=== PATIENT | male | born 1950 | race American Indian/Alaskan Native ===

== ENCOUNTER 2017-07-08 20:01 | Emergency (ER) | payer MEDICAID ==
[2017-07-08 20:15] VITALS: BP 130/81
[2017-07-08 20:34] LABS: Basophils % (Auto) 0.4 % (0.0-1.8); Eosinophils # (Auto) 0.1 K/mm3 (0.0-0.4); Eosinophils % (Auto) 3.4 % (0.0-4.3); Hemoglobin 14.8 gm/dl (11.8-15.2); Lymphocytes # (Auto) 1.1 K/mm3 (1.2-5.4); Lymphocytes % (Auto) 30.7 % (13.4-35.0); Mean Corpuscular HGB Conc 33 % (32-34); Mean Corpuscular Volume 78 fl (84-94); Monocytes # (Auto) 0.5 K/mm3 (0.0-0.8); Monocytes % (Auto) 14.6 % (0.0-7.3); Platelet Count 236 K/mm3 (140-440); Red Cell Distribution Width 16.3 % (13.2-15.2)
[2017-07-08 20:35] LABS: Mean Corpuscular Hemoglobin 26 pg (28-32)
[2017-07-08] MEDS ORDERED: ZOFRAN ODT PO ONE (20:51)
[2017-07-08] MEDS ORDERED: TYLENOL #3 PO ONE (20:51)
[2017-07-08] MEDS ORDERED: VITAMIN B-1 100 MG, FOLVITE 1 MG, INFUVITE 10 ML in NACL 0.9% 1000 ML 1,000 ML IV ONE (21:00)
[2017-07-08 21:06] LABS: BUN/Creatinine Ratio 8; Blood Urea Nitrogen 7 mg/dL (9-20); Calcium 8.4 mg/dL (8.4-10.2); Hemolysis Index 70
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
[2017-07-08 21:18] LABS: Bilirubin,Urine NEG (Negative); Blood,Urine NEG (Negative); Color,Urine Yellow (Yellow); Mucus,Urine FEW /HPF; Protein,Urine <15 mg/dL mg/dL (Negative); Urobilinogen,Urine < 2.0 mg/dL (<2.0)
[2017-07-08 21:32] LABS: Amphetamine Screen,Urine PRESUMPTIVE NEGATIVE; Benzodiazepines Screen,Urine PRESUMPTIVE NEGATIVE; Cannabinoid Screen,Urine PRESUMPTIVE NEGATIVE; Opiate Screen,Urine PRESUMPTIVE NEGATIVE
[2017-07-08 21:45] LABS: Cocaine Screen,Urine PRESUMPTIVE POSITIVE; Methadone Screen,Urine PRESUMPTIVE POSITIVE
[2017-07-08] MEDS ORDERED: SUBLIMAZE IV ONE (21:47)
--- NOTE | 2017-07-08 22:40 | XRay Report ---
FINAL REPORT PROCEDURE: XR CHEST ROUTINE 2V TECHNIQUE: PA and lateral chest radiographs were obtained. CPT 29253 HISTORY: left chest wall pain COMPARISON: No prior studies are available for comparison. FINDINGS: Heart: Normal. Mediastinum/Vessels: Normal. Lungs/Pleural space: There is moderate degree elevation of left hemidiaphragm. There are no confluent infiltrates or mass lesions. Bilateral pleural spaces are clear. Lungs are hyperinflated.. Bony thorax: Moderate degree S shaped scoliosis is noted involving thoracolumbar spine.. Other: IMPRESSION: COPD No acute pulmonary process..
== END 2017-07-09 01:35 | disposition home or self-care (01) ==
LOC: EEVIPCON 20:01 → ED 20:01
DX: E86.0 Dehydration (principal); F10.120 Alcohol abuse with intoxication, uncomplicated; R07.89 Other chest pain; I10 Essential (primary) hypertension; K76.9 Liver disease, unspecified; F17.200 Nicotine dependence, unspecified, uncomplicated
CPT/HCPCS: 36415; 71046; 80048; 80307; 81001; 84484; 85025; 93005; 93010; 96365; 99284; G0480; J3411; J7030; 80320; Q0162

== ENCOUNTER 2018-08-11 01:33 | Emergency (ER) | payer MEDICARE ==
--- NOTE | 2018-08-11 03:09 | Emergency Department Report ---
HPI - General Chief Complaint: Medical Clearance Time Seen by Provider: 08/11/18 03:01 - [facility] HPI: Room 11 The patient is a 67-year-old male presenting with a chief complaint medical clearance for alcohol and drug detox. The patient states he was sent here from [facility] for echo clearance for alcohol and drug detox. The patient states his last alcohol consumption occurred home. Patient has no specific complaints. However during the interview by the mental health appeals manager (Carmine) the patient admits to suicidal ideation stating that he wants to overdose Location: Mental state Duration: [See above] Quality: Suicidal Severity: Severe Modifying factors: [see above] Context: [see above] Mode of transportation: [not driving] ED Past Medical Hx - Past Medical History Previous Medical History?: Yes Hx Hypertension: Yes Hx Liver Disease: Yes Hx Psychiatric Treatment: Yes Hx HIV: Yes - Surgical History Past Surgical History?: No - Family History Family history: no significant - Social History Smoking Status: Never Smoker Substance Use Type: Alcohol, Cocaine, Prescribed, Other (Suboxone, Xanax) - Medications Home Medications: Home Medications Medication Instructions Recorded Confirmed Last Taken Type No Known Home Medications [No 08/11/18 08/11/18 Unknown History Reported Home Medications] ED Review of Systems ROS: Stated complaint: MEDICAL CLEARANCE Other details as noted in HPI Constitutional: no symptoms reported Eyes: denies: eye pain ENT: denies: throat pain Respiratory: no symptoms reported Cardiovascular: denies: chest pain Endocrine: no symptoms reported Gastrointestinal: denies: abdominal pain Genitourinary: denies: dysuria Musculoskeletal: myalgia Neurological: denies: headache Psychiatric: suicidal thoughts Physical Exam - Physical Exam Physical Exam: GENERAL: The patient is well-developed well-nourished male lying on stretcher n ot appearing to be in acute distress. [] HEENT: Normocephalic. Atraumatic. Extraocular motions are intact. Patient has moist mucous membranes. NECK: Supple. Trachea midline CHEST/LUNGS: Clear to auscultation. There is no respiratory distress noted. HEART/CARDIOVASCULAR: Regular. There is no tachycardia. There is no gallop rub or murmur. ABDOMEN: Abdomen is soft, nontender. Patient has normal bowel sounds. There is no abdominal distention. SKIN: There is no rash. There is no edema. There is no diaphoresis. NEURO: The patient is awake, alert, and oriented. The patient is cooperative. The patient has normal speech MUSCULOSKELETAL: There is no evidence of acute injury. ED Medical Decision Making - Lab Data Result diagrams: 08/11/18 03:22 08/11/18 03:22 Laboratory Tests 08/11/18 08/11/18 08/11/18 03:22 03:22 03:22 WBC RBC Hgb Hct MCV MCH MCHC RDW Plt Count Lymph % (Auto) [place] % (Auto) Eos % (Auto) Baso % (Auto) Lymph # Carson # Eos # Baso # Seg Neutrophils % Seg Neutrophils # Sodium 140 Potassium 3.6 Chloride 105.0 Carbon Dioxide 24 Anion Gap 15 BUN 11 Creatinine 0.8 Estimated GFR > 60 BUN/Creatinine Ratio 14 Glucose 83 Calcium 8.8 Urine Color Urine Turbidity Urine pH Ur Specific [place] Urine Protein Urine Glucose (UA) Urine Ketones Urine Blood Urine Nitrite Urine Bilirubin Urine Urobilinogen Ur Leukocyte Esterase Urine WBC (Auto) Urine RBC (Auto) Urine Mucus Salicylates < 0.3 L Urine Opiates Screen Urine Methadone Screen Acetaminophen < 5.0 L Ur Barbiturates Screen Ur Phencyclidine Scrn Ur Amphetamines Screen U Benzodiazepines Scrn U Marijuana (THC) Screen Drugs of Abuse Note Plasma/Serum Alcohol 08/11/18 08/11/18 08/11/18 03:22 03:22 Unknown WBC 4.7 RBC 5.65 H Hgb 14.9 Hct 45.5 MCV 81 L MCH 27 L MCHC 33 RDW 15.6 H Plt Count 261 Lymph % (Auto) 43.6 H [place] % (Auto) 12.3 H Eos % (Auto) 2.2 Baso % (Auto) 0.6 Lymph # 2.1 Carson # 0.6 Eos # 0.1 Baso # 0.0 Seg Neutrophils % 41.3 Seg Neutrophils # 1.9 Sodium Potassium Chloride Carbon Dioxide Anion Gap BUN Creatinine Estimated GFR BUN/Creatinine Ratio Glucose Calcium Urine Color Yellow Urine Turbidity Clear Urine pH 6.0 Ur Specific [place] 1.015 Urine Protein <15 mg/dl Urine Glucose (UA) Neg Urine Ketones Neg Urine Blood Neg Urine Nitrite Neg Urine Bilirubin Neg Urine Urobilinogen < 2.0 Ur Leukocyte Esterase Neg Urine WBC (Auto) < 1.0 Urine RBC (Auto) 2.0 Urine Mucus Few Salicylates Urine Opiates Screen Urine Methadone Screen Acetaminophen Ur Barbiturates Screen Ur Phencyclidine Scrn Ur Amphetamines Screen U Benzodiazepines Scrn U Marijuana (THC) Screen Drugs of Abuse Note Plasma/Serum Alcohol < 0.01 08/11/18 Unknown WBC RBC Hgb Hct MCV MCH MCHC RDW Plt Count Lymph % (Auto) [place] % (Auto) Eos % (Auto) Baso % (Auto) Lymph # Carson # Eos # Baso # Seg Neutrophils % Seg Neutrophils # Sodium Potassium Chloride Carbon Dioxide Anion Gap BUN Creatinine Estimated GFR BUN/Creatinine Ratio Glucose Calcium Urine Color Urine Turbidity Urine pH Ur Specific [place] Urine Protein Urine Glucose (UA) Urine Ketones Urine Blood Urine Nitrite Urine Bilirubin Urine Urobilinogen Ur Leukocyte Esterase Urine WBC (Auto) Urine RBC (Auto) Urine Mucus Salicylates Urine Opiates Screen Presumptive negative Urine Methadone Screen Presumptive negative Acetaminophen Ur Barbiturates Screen Presumptive negative Ur Phencyclidine Scrn Presumptive negative Ur Amphetamines Screen Presumptive negative U Benzodiazepines Scrn Presumptive negative U Marijuana (THC) Screen Presumptive negative Drugs of Abuse Note Disclamer Plasma/Serum Alcohol - Differential Diagnosis suicidal ideation, polysubstance abuse Critical care attestation.: If time is entered above; I have spent that time in minutes in the direct care of this critically ill patient, excluding procedure time. ED Disposition Clinical Impression: Suicidal ideation, Polysubstance abuse Disposition: [id number]/[id number] HOSP/PSY UNIT Is pt being admited?: No Does the pt Need Aspirin: No Condition: Serious Referrals: PRIMARY CARE, [Referring] - 3-5 Days Time of Disposition: 04:29 (awaiting acceptance)
[2018-08-11 03:39] LABS: Bilirubin,Urine NEG (Negative); Blood,Urine NEG (Negative); Color,Urine Yellow (Yellow); Mucus,Urine FEW /HPF; Protein,Urine <15 mg/dL mg/dL (Negative); Urobilinogen,Urine < 2.0 mg/dL (<2.0)
[2018-08-11 04:06] LABS: Basophils % (Auto) 0.6 % (0.0-1.8); Eosinophils # (Auto) 0.1 K/mm3 (0.0-0.4); Eosinophils % (Auto) 2.2 % (0.0-4.3); Hematocrit 45.5 % (35.5-45.6); Hemoglobin 14.9 gm/dl (11.8-15.2); Lymphocytes # (Auto) 2.1 K/mm3 (1.2-5.4); Lymphocytes % (Auto) 43.6 % (13.4-35.0); Mean Corpuscular HGB Conc 33 % (32-34); Mean Corpuscular Volume 81 fl (84-94); Monocytes # (Auto) 0.6 K/mm3 (0.0-0.8); Monocytes % (Auto) 12.3 % (0.0-7.3); Platelet Count 261 K/mm3 (140-440); Red Blood Count 5.65 M/mm3 (3.65-5.03); Red Cell Distribution Width 15.6 % (13.2-15.2)
[2018-08-11 04:14] LABS: WBC,Urine < 1.0 /HPF (0.0-6.0)
[2018-08-11 04:27] LABS: BUN/Creatinine Ratio 14; Blood Urea Nitrogen 11 mg/dL (9-20); Calcium 8.8 mg/dL (8.4-10.2); Hemolysis Index 31
[2018-08-11 04:36] LABS: Amphetamine Screen,Urine PRESUMPTIVE NEGATIVE; Benzodiazepines Screen,Urine PRESUMPTIVE NEGATIVE; Cannabinoid Screen,Urine PRESUMPTIVE NEGATIVE; Methadone Screen,Urine PRESUMPTIVE NEGATIVE; Opiate Screen,Urine PRESUMPTIVE NEGATIVE
[2018-08-11 04:48] LABS: Cocaine Screen,Urine PRESUMPTIVE POSITIVE
--- NOTE | 2018-08-11 14:17 | Consultation ---
History of Present Illness - Reason for Consult Consult date: 08/11/18 Reason for consult: Mental Health Evaluation Requesting physician: SATHYA PIERRE - Chief Complaint Chief complaint: "I was never suicidal" - History of Present Psychiatric Illness 67 y.o. AA male who presented the ER for drug detox and SI's. Today the patient is calm and cooperative during the assessment. He stated that he was never suicidal when asked. He stated that he mentioned being suicidal to get help for his substance abuse. He stated having a "long hx " of substance/alcohol abuse> He stated that he have been to rehab in the past, but often relapse. He stated that he is willing to go to any facility for assistance. He denies Si/HI's and AVH's. He denies being depressed, erratic sleep, and a poor appetite. Medications and Allergies Allergies Allergy/AdvReac Type Severity Reaction Status Date / Time No Known Allergies Allergy Unverified 07/08/17 20:14 Home Medications Medication Instructions Recorded Confirmed Last Taken Type No Known Home Medications [No 08/11/18 08/11/18 Unknown History Reported Home Medications] Past psychiatric history - Past Medical History Past Medical History: HIV/AIDS, other (Liver Disease) Past Surgical History: No surgical history - past Psychiatric treatment and history psychiatric treatment history: Hx of Substance Abuse. Denies a fam psy hx. - Social History Social history: other (Homeless) Mental Status Exam - Vital signs Last Vital Signs Temp Pulse Resp 18 08/11/18 07:00 BP Pulse Ox - Exam Narrative exam: MSE: Appearance: calm, cooperative Behavior: regular eye contact Speech: regular rate and tone Mood: "fine" Affect: congruent to mood Thought Process: logical Thought Content: denies SI/HI's and AVH' Motor Activity: sitting up in the bed Cognition: A/O x 3 Insight: appropriate Judgment: appropriate Results Result Diagrams: 08/11/18 03:22 08/11/18 03:22 Abnormal lab results 08/11/18 08/11/18 08/11/18 Range/Units 03:22 03:22 03:22 RBC 5.65 H (3.65-5.03) M/mm3 MCV 81 L (84-94) fl MCH 27 L (28-32) pg RDW 15.6 H (13.2-15.2) % Lymph % (Auto) 43.6 H (13.4-35.0) % [place] % (Auto) 12.3 H (0.0-7.3) % Salicylates < 0.3 L (2.8-20.0) mg/dL Acetaminophen < 5.0 L (10.0-30.0) ug/mL All other labs normal. Assessment and Plan Assessment and plan: Impression: Substance Use DO (cocaine). Hx of Alcohol Abuse. Today the patient is calm and cooperative during the assessment. Recommendation/Plan: Rescind 1013, the patient do not meet 1013 criteria. Dispo: The patient was referred to several inpatient facilities for voluntary placement. Also, the patient is considered for placement to [facility]'s Partial Hospitalization Program (voluntary). Staffed with Dr Andrés acuña.
[2018-08-11 14:43] VITALS: BP 142/90
== END 2018-08-11 17:58 ==
LOC: ED 01:33
DX: F19.10 Other psychoactive substance abuse, uncomplicated (principal); F14.10 Cocaine abuse, uncomplicated; F10.10 Alcohol abuse, uncomplicated; I10 Essential (primary) hypertension; Z21 Asymptomatic human immunodeficiency virus [HIV] infection status
CPT/HCPCS: 36415; 80048; 80307; 81001; 85025; 99284; G0480; 80320

== ENCOUNTER 2019-05-23 19:56 | Emergency (ER) | payer MEDICARE ==
--- NOTE | 2019-05-23 20:22 | Event Note ---
ED Screening Note ED Screening Note: upper abd pain and bilateral flank pain began today one episode of vomiting no diarrhea no blood in stool or vomit no fever +urinary frequency no dysuria PMHx Hep C with liver cirrhosis, HIV, HTN, COPD is on antivirals, does not know his CD4 count, has not seen infectious disease doctor in a year cant take tylenol due to cirrhosis This initial assessment/diagnostic orders/clinical plan/treatment(s) is/are subject to change based on patients health status, clinical progression and re- assessment by fellow clinical providers in the ED. Further treatment and workup at subsequent clinical providers discretion. Patient/guardian urged not to elope from the ED as their condition may be serious if not clinically assessed and managed. Initial orders include: labs, UA
[2019-05-23 21:24] LABS: Basophils % (Auto) 0.4 % (0.0-1.8); Eosinophils % (Auto) 0.5 % (0.0-4.3); Hematocrit 47.4 % (35.5-45.6); Hemoglobin 15.5 gm/dl (11.8-15.2); Lymphocytes # (Auto) 1.1 K/mm3 (1.2-5.4); Lymphocytes % (Auto) 12.8 % (13.4-35.0); Mean Corpuscular HGB Conc 33 % (32-34); Mean Corpuscular Volume 81 fl (84-94); Monocytes # (Auto) 0.6 K/mm3 (0.0-0.8); Monocytes % (Auto) 6.9 % (0.0-7.3); Platelet Count 254 K/mm3 (140-440); Red Blood Count 5.89 M/mm3 (3.65-5.03); Red Cell Distribution Width 15.1 % (13.2-15.2)
[2019-05-23 21:40] LABS: INR 0.94 (0.87-1.13)
[2019-05-23 21:45] LABS: Alanine Aminotransferase 34 units/L (7-56); Albumin 4.8 g/dL (3.9-5); BUN/Creatinine Ratio 19; Blood Urea Nitrogen 15 mg/dL (9-20); Calcium 9.6 mg/dL (8.4-10.2); Hemolysis Index 6
[2019-05-23] MEDS ORDERED: IBUPROFEN ORAL LIQD 100 MG/5 ML ORAL.LIQD PO ONE (21:52)
[2019-05-23] MEDS ORDERED: SUCRALFATE 1 GM/10 ML ORAL LIQD PO ONE (21:52)
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
[2019-05-23 22:45] LABS: Bilirubin,Urine NEG (Negative); Blood,Urine NEG (Negative); Color,Urine Yellow (Yellow); Protein,Urine <15 mg/dL mg/dL (Negative); Urobilinogen,Urine < 2.0 mg/dL (<2.0); WBC,Urine < 1.0 /HPF (0.0-6.0)
--- NOTE | 2019-05-23 22:49 | XRay Report ---
CHEST 1 VIEW INDICATION: cough. COMPARISON: 07/08/2017 FINDINGS: Support devices: None. Heart: Normal. Lungs/Pleura: No acute pulmonary or pleural findings. IMPRESSION: 1. No acute findings. Signer Name: Zachary Paige MD Signed: 05/23/2019 10:44 PM Workstation Name: [id number]
--- NOTE | 2019-05-23 22:59 | Cat Scan Report ---
CT ABDOMEN AND PELVIS WITHOUT IV CONTRAST INDICATION: b/ flank pain abd pain, hx of diaphragm repair. COMPARISON: None available. TECHNIQUE: All CT scans at this facility use dose modulation, automated exposure control, iterative reconstructi on or weight based dosing, when appropriate, to reduce radiation dose to as low as reasonably achieva ble. FINDINGS: Lung Bases: No significant abnormality. Skeletal System: No acute abnormality. ABDOMEN: Liver: No significant abnormality. Gallbladder: No significant abnormality. Bile Ducts: No significant abnormality. Pancreas: No significant abnormality. Spleen: No significant abnormality. Adrenals: No significant abnormality. Right Kidney: No significant abnormality. Left Kidney: No significant abnormality. Upper GI tract: No significant abnormality. Lymph Nodes: No significant adenopathy. Aorta: No significant abnormality. Additional Findings: No significant abnormality. PELVIS: Colon: No acute abnormality. Urinary Bladder and Distal Ureters: No significant abnormality. Appendix: Not visualized Lymph Nodes: No significant adenopathy. Additional Findings: Prostate is enlarged. IMPRESSION: 1. Within the limitations of non contrast technique, no acute process in the abdomen or pelvis. 2. Incidental findings, as above. Signer Name: Zachary Paige MD Signed: 05/23/2019 10:54 PM Workstation Name: [id number]
[2019-05-23] MEDS ORDERED: DICYCLOMINE 10 MG CAP PO ONE (23:00)
[2019-05-23 23:11] VITALS: BP 133/91
== END 2019-05-23 23:45 | disposition home or self-care (01) ==
LOC: ED 19:56
DX: R10.9 Unspecified abdominal pain (principal); R05 Cough; I10 Essential (primary) hypertension; J44.9 Chronic obstructive pulmonary disease, unspecified; Z21 Asymptomatic human immunodeficiency virus [HIV] infection status; F17.200 Nicotine dependence, unspecified, uncomplicated; Z79.1 Long term (current) use of non-steroidal anti-inflammatories (NSAID); Z79.899 Other long term (current) drug therapy; Z88.8 Allergy status to other drugs, medicaments and biological substances
CPT/HCPCS: 36415; 71045; 74176; 80053; 81001; 82550; 83690; 83735; 85025; 85610; 85730; 93005; 93010